=== PATIENT | male | born 1985 | race Caucasian/White ===

== ENCOUNTER 2017-10-17 13:47 | Emergency (ER) | payer MEDICAID ==
[~2017-10-17] VITALS: Ht 188 cm; Wt 59.0 kg
[~2017-10-17 13:47] MED LIST: ALBIPROI INH; ALBU90OI INH; AMOX500 PO; CEPH500 PO; CODACE30 PO; HYDACE5 PO; HYDACE5325 PO; PENVK500 PO; SULTRIDS PO
[2017-10-17] MEDS ORDERED: PERIDEX15 ML MM (14:32)
[2017-10-17] MEDS ORDERED: Amoxicillin500 MG PO (14:32)
[2017-10-17] MEDS ORDERED: IBUP800 PO (14:32)
== END 2017-10-17 14:52 | disposition home or self-care (01) ==
LOC: ER 13:47
DX: K04.7 Periapical abscess without sinus (principal); F17.220 Nicotine dependence, chewing tobacco, uncomplicated
CPT/HCPCS: 64450; 99283-25

== ENCOUNTER 2018-06-20 08:55 | Emergency (ER) | payer OTHER ==
[~2018-06-20] VITALS: Ht 188 cm; Wt 59.0 kg
[~2018-06-20 08:55] MED LIST changes: +Amoxicillin500 MG PO; +IBUP800 PO; +PERIDEX15 ML MM
[2018-06-20] MEDS ORDERED: IBUP600 PO (10:00)
== END 2018-06-20 10:07 | disposition home or self-care (01) ==
LOC: ER 08:55
DX: M25.531 Pain in right wrist (principal); J45.909 Unspecified asthma, uncomplicated; Z79.899 Other long term (current) drug therapy; Z87.891 Personal history of nicotine dependence
CPT/HCPCS: 73090; 99283-25

== ENCOUNTER 2022-10-21 13:14 | Emergency (ER) | payer OTHER ==
[~2022-10-21] VITALS: Ht 185.4 cm; Wt 61.2 kg
[~2022-10-21 13:14] MED LIST changes: +IBUP600 PO
[2022-10-21 13:21] VITALS: BP 139/84
[2022-10-21 13:48] LABS: BASOPHILS ABSOLUTE AUTO 0.08 K/mm3 (0.00-0.23); BASOPHILS PERCENT AUTO 1 % (0-2); EOSINOPHILS ABSOLUTE AUTO 0.23 K/mm3 (0.00-0.68); EOSINOPHILS PERCENT AUTO 2 % (0-6); Hematocrit 43.1 % (37.0-53.0); Hemoglobin 14.8 g/dL (13.5-17.5); IMMATURE GRAN ABSOLUTE AUTO 0.03 K/mm3 (0.00-0.10); IMMATURE GRAN PERCENT AUTO 0 % (0-1); LYMPHOCYTES ABSOLUTE AUTO 1.43 K/mm3 (0.84-5.20); LYMPHOCYTES PERCENT AUTO 14 % (21-46); MONOCYTES PERCENT AUTO 6 % (4-13); Mean Corpuscular HGB 29.5 pg (26.0-34.0); Mean Corpuscular HGB Conc 34.3 g/dL (31.5-36.5); Mean Corpuscular Volume 86 fL (80-100); Mean Platelet Volume 10.8 fL (9.1-12.4); NEUTROPHILS ABSOLUTE AUTO 7.91 K/mm3 (1.96-9.15); NEUTROPHILS PERCENT AUTO 77 % (41-73); Platelet Count 233 K/mm3 (150-400); RDW Coefficient Variation 12.7 % (11.7-14.2); RDW Standard Deviation 39.9 fL (35.1-46.3); Red Blood Cell Count 5.01 M/mm3 (4.30-5.90); White Blood Cell Count 10.28 K/mm3 (4.00-11.30)
[2022-10-21 14:06] LABS: Albumin, Blood 4.1 g/dL (3.4-5.0); Albumin/Globulin Ratio 1.3 (0.8-1.8); Bilirubin, Total 0.5 mg/dL (0.1-1.0); Bun/Creatinine Ratio 14.2 (12.0-20.0); Calcium, Blood 8.9 mg/dL (8.5-10.1); Creatinine, Blood 0.99 mg/dL (0.60-1.20); Globulin, Blood 3.1 g/dL (2.2-4.0); Potassium, Blood 3.9 mmol/L (3.5-5.5); Total Protein, Blood 7.2 g/dL (6.4-8.2)
== END 2022-10-21 15:07 | disposition home or self-care (01) ==
LOC: ER 13:14
PROVIDERS: Student in an Organized Health Care Education/Training Program
DX: F41.9 Anxiety disorder, unspecified (principal); J44.9 Chronic obstructive pulmonary disease, unspecified; F17.220 Nicotine dependence, chewing tobacco, uncomplicated
CPT/HCPCS: 71046; 80053; 84484; 85025; 93005; 93010; 99284-25